=== PATIENT | male | born 1990 | race Caucasian/White ===

== ENCOUNTER → 2019-09-12 | Outpatient (CLI) | payer BC ==
[~2019-09-12] MED LIST: BUPIVACAINE MPF 0.25% 10 ML VIAL. ONE; IOHEXOL 180 MG/ML 10 ML VIAL. ONE; methylPREDNISolone ACETATE 40 MG/ML VIAL. ONE; methylPREDNISolone ACETATE 80 MG/ML VIAL. ONE
--- NOTE | 2019-09-12 14:10 | PAIN ---
DATE OF SERVICE: 09/12/2019 INITIAL CONSULTATION FOR PAIN CLINIC CHIEF COMPLAINT: Low back pain. HISTORY OF PRESENT ILLNESS: This is a 29-year-old male who presents with history of pain in the low back since about 07/03/2019, not a result of any specific injury or action he is aware of, but came on suddenly when he was at work. 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 Reports that it was not a work-related injury, but the pain began when he was at work with walking and climbing stairs. The patient reports it has been getting much worse since that time. He has had physical therapy for 6 weeks, which did not decrease the pain and feels that actually made it worse. He has not had any other therapies, chiropractic treatments, or other injections or procedures or treatments. The patient reports that the pain is awaking him multiple times at night from sleep, does not affect his bowel or bladder control, but does affect his ability to walk significantly. He is favoring his right lower extremity as it hurts worse on the right side in the low back and hip with some pain in the lateral calf as well on the right side, but only rarely. The patient reports the pain is constant, sharp in the back, stabbing with numbness sensation as well. The patient rates his disability rating 0-10, 10 being the worst, is a 7 with family home responsibilities and social activity, 8 with recreation and sexual behavior, 9 with occupation, 6 with self-care and 4 with life support activities. The patient did have an MRI scan of the lumbar spine showing at the L4-L5 a [id number] disk height loss with disk dehydration, associated broad-based posterior disk protrusion with no more than mild spinal canal stenosis, this was 07/08/2019. The patient has seen a neurosurgeon who is recommending conservative measures as well. The patient reports no loss of motor function, but significant fatigability to right lower extremity with walking and standing. PAST MEDICAL HISTORY: Significant for irritable bowel syndrome, insomnia, arthritis, depression. PREVIOUS SURGERIES: Include knee scopes, 3 on the left, 1 on the right; previous appendectomy. CURRENT MEDICATIONS: Include only [id number] ibuprofen and Tylenol. ALLERGIES: THE PATIENT IS ALLERGIC TO HYDROCODONE. FAMILY HISTORY: Significant for arthritis. SOCIAL HISTORY: The patient drinks about 3 drinks alcohol daily. Does not smoke, but chewing tobacco for about the last 8 years. He does not use any illegal, illicit, or recreational drugs. He is single, lives locally in [place], [place]. Has one child who is 1-year-old, who lives with him as well and his significant other. 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 REVIEW OF SYSTEMS: The patient's review of systems is positive for those items mentioned in history of present illness. All systems reviewed and otherwise negative. It is complete, full, and well documented on the patient's chart. PHYSICAL EXAMINATION: VITAL SIGNS: The patient's blood pressure is 126/92, pulse 90, respirations 16, temperature 98.0 degrees Fahrenheit. Height is 5 feet 1 inch and weight is 146 pounds. GENERAL: The patient is awake, alert, oriented, appropriate, very pleasant demeanor. HEENT: Shows normocephalic, atraumatic. Extraocular movements are intact and symmetrical. Oral cavity: Mucous membranes moist and pink. Dentition is intact. NECK: Shows anterior throat supple without palpable lymphadenopathy noted. Swallow reflex symmetrical. CHEST: Shows normal on inspection. Breath sounds are clear to auscultation bilaterally. HEART: Shows S1, S2 clear. No murmurs auscultated. ABDOMEN: Soft, nontender, nondistended. No palpable organomegaly is noted. There is no rebound or guarding demonstrated. BACK: Shows spine grossly in the midline. Normal-appearing cervical lordotic curvature, thoracic kyphotic curvature, and lumbar lordotic curvature. Lumbar paraspinous muscle shows symmetrical on inspection, on palpation shows some moderate tenderness diffusely, but only diffusely without significant radiation. The patient has good rotational motion of lumbar spine with significant tenderness with rotation to the right especially, but also with the left. Also, extension exacerbates the pain significantly to a severe level across the low back and into the posterior gluteus on the right. The patient reports it is mildly decreased with forward flexion, which he performs at 45 degrees, but it is not completely relieved. EXTREMITIES: The patient's lower extremities show deep tendon reflexes at 2+ in the patellar, 1+ tendo-calcaneus tendons are equal. Motor exam is strong with 5/5 dorsiflexion, extension, quadriceps, and hamstring flexion symmetrical. Peripheral pulses are 1+ posterior tibia. No peripheral edema is noted bilaterally. Straight leg raise noted to be negative for reproduction of radicular symptoms bilaterally, but it causes some pain in the low back on the right side with right leg raise at about 45 degrees. Left side is negative. Gaenslen's and Adonis's maneuvers are negative bilaterally as well. The patient is able to stand, stand on his toes, walks with favoring gait, does appear to favor the right lower extremity fairly significantly, but does not using any assistive devices such as canes or walkers to ambulate. SKIN: Shows warm and dry. Normal turgor. No edema. No sores, rashes, or bruising. IMPRESSION: 1. This is a 29-year-old male with approximate 2-month history of increasing pain in the low back into the right lower extremity to some extent, but consistent with facet pain syndrome. 2. MRI scan of lumbar spine as noted. 3. Arthritis. 4. Irritable bowel syndrome. PLAN: Options were discussed with the patient including conservative medical managements, physical therapies, and interventional techniques and he would like to pursue interventional techniques. We discussed bilateral L4-L5 and L5-S1 facet joint injections using description as well as anatomical models to describe the procedure. Risks were discussed including but not limited to bleeding, infection, possibility of epidural hematoma, subsequent neurological compromise, dural puncture, headaches, spinal cord and/or nerve damage, side effects of steroid medication, local anesthetic spread and numbness as well as poor results regarding pain control. The patient understands and wished to proceed. The patient will return to clinic in approximately 2 weeks for followup. He was counseled on return appointment, activity level, and side effects to be aware of. DIAGNOSIS: Lumbar and lumbosacral spondylosis. PROCEDURE: Bilateral L4-L5 and L5-S1 facet joint injections using C-arm fluoroscopic guidance under sterile prep and drape using local anesthetic. MEDICATION INJECTED: A total of 120 mg Depo-Medrol plus 4 mL of 0.25% bupivacaine, 2 mL of contrast. CONDITION AT DISCHARGE: Stable. The patient tolerated the procedure well, had no complications. NATALIE ALBERTO MD DR: TRUPTI/hieu JOB#: [id number] / [id number]
== END ==
LOC: PNCL 12:07
PROVIDERS: ATTEND Anesthesiology
DX: M47.817 Spondylosis without myelopathy or radiculopathy, lumbosacral region (principal); F32.9 Major depressive disorder, single episode, unspecified; Z87.39 Personal history of other diseases of the musculoskeletal system and connective tissue; K58.9 Irritable bowel syndrome, unspecified; Z98.890 Other specified postprocedural states; Z88.5 Allergy status to narcotic agent; Z72.89 Other problems related to lifestyle; Z72.0 Tobacco use
CPT/HCPCS: 64493; 64494; 64495; J1030; J1040; J3490; Q9965

== ENCOUNTER → 2019-09-26 | Outpatient (CLI) | payer BC ==
[~2019-09-26] MED LIST changes: -BUPIVACAINE MPF 0.25% 10 ML VIAL. ONE; +[UNRECOGNIZED DRUG - REMARK]
--- NOTE | 2019-09-26 13:01 | PAIN ---
DATE OF SERVICE: 09/26/2019 PROGRESS NOTE FOR PAIN CLINIC DIAGNOSES: Lumbar radiculopathy with lumbar degenerative disk disease and lumbar spondylosis. HISTORY OF PRESENT ILLNESS: The patient is a 29-year-old male who returns for followup status post initial evaluation and bilateral facet joint injections at L4-L5 and L5-S1. The patient reports only about 50% improvement for about 2 days, the pain returned about as bad as it was. The patient reports now it is radiating into his right leg with some pain in the right ankle that is consistent with aching in that area as well as his low back, especially with walking and standing. The patient reports it is an 8 on a scale of 10 at its worse over the past week, 6 on average and 4 at its least and is a 6 today. The patient reports it is aching and dull, sometimes it is shooting into the right lateral ankle. The patient reports it is becoming more constant with activity, better with sitting or lying down, generally does not awaken him from sleep at night. The patient reports no new motor or sensory deficits, no new bowel or bladder incontinence or other complaints. PHYSICAL EXAMINATION: VITAL SIGNS: The patient's blood pressure 120/88, pulse 101, respirations 16, temperature 98.2 degrees Fahrenheit, height is 5 feet 1 inch, weight is 147 pounds. GENERAL: The patient is awake, alert, oriented, appropriate, very pleasant demeanor. HEENT: Exam shows normocephalic, atraumatic. Extraocular movements are intact and symmetrical. Oral cavity shows mucous membranes moist and pink. Dentition is intact. NECK: Shows anterior throat supple without palpable lymphadenopathy noted. Swallow reflex symmetrical. CHEST: Shows normal on inspection. Breath sounds are clear bilaterally. HEART: Shows S1, S2 clear. No murmurs auscultated. ABDOMEN: Soft, nontender, nondistended. No palpable organomegaly is noted. No rebound or guarding demonstrated. BACK: Shows spine grossly in the midline. Normal appearing thoracic kyphosis and lumbar lordotic curvature. Lumbar paraspinous muscle shows symmetrical on inspection and firm musculature throughout the upper, middle and lower distribution of paraspinous muscles, but only diffusely tender, more on the right than the left, but without asymmetry, without trigger points, without radiation. The patient has good rotational motion of lumbar spine, both laterally with some moderate tenderness with extension, but better than on previous exam and not with forward flexion at 45 degrees. EXTREMITIES: The patient's lower extremities show deep tendon reflexes at 2+ in the patellar, 1+ tendo-calcaneus tendons. Motor exam is strong with 5/5 dorsiflexion, extension, quadriceps and hamstring flexion and symmetrical. Peripheral pulses are 1+. No peripheral edema bilaterally. Options were discussed with the patient. The patient's old chart was reviewed as his current medication regimen and review of systems. We will plan on a lumbar epidural steroid injection today with fluoroscopic guidance. Risks were then discussed including, but not limited to bleeding, infection, possibility of epidural hematoma and subsequent neurological compromise, dural punctures, headaches, spinal cord and/or nerve damage, side effects of steroid medication and poor results regarding pain control. The patient understands and wished to proceed. The patient will return to clinic in approximately 2 weeks for followup. He was counseled on return appointment, activity level and side effects to be aware of. DIAGNOSES: Lumbar radiculopathy with lumbar degenerative disk disease and lumbar spondylosis. PROCEDURE: Lumbar epidural steroid injection, translaminar approach at the L4-L5 level using C-arm fluoroscopic guidance under sterile prep and drape using local anesthetic. MEDICATION INJECTED: A total of 120 mg Depo-Medrol plus 10 mL of preservative-free normal saline and 2 mL of contrast. CONDITION AT DISCHARGE: Stable. The patient tolerated procedure well, had no complications. NATALIE ALBERTO MD DR: TRUPTI/hieu JOB#: [id number] / [id number]
== END ==
LOC: PNCL 10:55
PROVIDERS: ATTEND Anesthesiology
DX: M51.16 Intervertebral disc disorders with radiculopathy, lumbar region (principal); M47.816 Spondylosis without myelopathy or radiculopathy, lumbar region
CPT/HCPCS: 62323; J1030; J1040; Q9965

== ENCOUNTER → 2019-10-10 | Outpatient (CLI) | payer BC ==
--- NOTE | 2019-10-10 11:21 | PAIN ---
DATE OF SERVICE: 10/10/2019 PROGRESS NOTE FOR PAIN CLINIC DIAGNOSES: Lumbar radiculopathy with lumbar degenerative disk disease and lumbar spondylosis. HISTORY OF PRESENT ILLNESS: The patient is a 29-year-old male who returns for followup status post lumbar epidural steroid injection x 1. The patient reports about 50% improvement in his leg. He is doing much better now after the injection as best though has some pain in the right side of the low back primarily, but across the low back the patient reports it is much improved. He is increasing his activity with greater ability to walk and activities at work as well as at home, traveling with greater ease and comfort. The patient reports it is awakening him from sleep still but only about once every 6 hours. The patient reports no new motor or sensory deficits, describes the pain as aching and dull in the low back with the radiating pain much reduced in the right leg by about 50%. The patient reports his pain is a 7 on a scale of 10 at its worst over the past week, 6 on average, 5 at its least and is a 5 today. The patient reports no new motor or sensory deficits, no bowel or bladder incontinence or other complaints. PHYSICAL EXAMINATION: VITAL SIGNS: The patient's blood pressure 126/98, pulse 90, respirations 16, temperature 98.3 degrees Fahrenheit, height is 5 feet 1 inch, weight is 151 pounds. GENERAL: The patient is awake, alert, oriented, appropriate, very pleasant demeanor. HEENT: Shows normocephalic, atraumatic. Extraocular movements are intact and symmetrical. Oral cavity: Mucous membranes moist and pink. Dentition is intact. NECK: Shows anterior throat supple without palpable lymphadenopathy noted. Swallow reflex symmetrical. CHEST: Shows normal on inspection. Breath sounds are clear bilaterally. HEART: Shows S1, S2 clear. No murmurs auscultated. ABDOMEN: Soft, nontender, nondistended. No palpable organomegaly is noted. No rebound or guarding demonstrated. BACK: Shows spine grossly in the midline. Lumbar paraspinous muscle shows symmetrical on inspection, with palpation shows some mild tenderness, but only diffusely throughout the middle and lower distribution of paraspinous muscles, but without radiation, without trigger points or asymmetry. EXTREMITIES: The patient's lower extremities show deep tendon reflexes at 2+ patellar, 1+ tendo-calcaneus tendons. Motor exam is strong with 5/5 dorsiflexion, extension, quadriceps and hamstring flexion and symmetrical. Peripheral pulses are 1+ posterior tibia. No peripheral edema is noted. Options were discussed with the patient. The patient's old chart was reviewed as his current medication regimen updated. Current review of systems updated today as well. We will proceed with a second in a series of lumbar epidural steroid injections with fluoroscopic guidance. Risks were again discussed including, but not limited to bleeding, infection, possibility of epidural hematoma, subsequent neurological compromise, dural puncture, headaches, spinal cord and/or nerve damage, side effects of steroid medication and poor results regarding pain control. The patient understands and wished to proceed. The patient will return to clinic in approximately 2 weeks for followup. He was counseled on return appointment, activity level and side effects to be aware of. DIAGNOSES: Lumbar radiculopathy with lumbar degenerative disk disease and lumbar spondylosis. PROCEDURE: Lumbar epidural steroid injection, translaminar approach at L4-L5 level using C-arm fluoroscopic guidance under sterile prep and drape using local anesthetic. MEDICATION INJECTED: A total of 120 mg Depo-Medrol plus 10 mL preservative-free normal saline and 2 mL of contrast. CONDITION AT DISCHARGE: Stable. The patient tolerated procedure well, had no complications. NATALIE ALBERTO MD DR: TRUPTI/hieu JOB#: [id number] / [id number]
== END ==
LOC: PNCL 10:10
PROVIDERS: ATTEND Anesthesiology
DX: M51.16 Intervertebral disc disorders with radiculopathy, lumbar region (principal); M47.26 Other spondylosis with radiculopathy, lumbar region; M54.5 Low back pain; Z79.899 Other long term (current) drug therapy; Z98.890 Other specified postprocedural states
CPT/HCPCS: 62323; J1030; J1040; Q9965

== ENCOUNTER → 2019-10-24 | Outpatient (CLI) | payer BC ==
[~2019-10-24] MED LIST changes: -IOHEXOL 180 MG/ML 10 ML VIAL. ONE; -methylPREDNISolone ACETATE 40 MG/ML VIAL. ONE; -methylPREDNISolone ACETATE 80 MG/ML VIAL. ONE
--- NOTE | 2019-10-24 11:14 | PAIN ---
DATE OF SERVICE: 10/24/2019 PROGRESS NOTE FOR PAIN CLINIC DIAGNOSES: Lumbar radiculopathy with lumbar degenerative disk disease and lumbar spondylosis. HISTORY OF PRESENT ILLNESS: The patient is a 29-year-old male who returns for followup status post lumbar epidural steroid injection x 2 and facet injections x 1. The patient reports he is doing fairly well, about 50% improvement and overall the patient reports pain is better, but still painful in the low back, especially at night when he is lying flat on his back, he notices some tingling in his feet, but if he is up on his feet during the day, it is fairly tolerable. The patient reports his pain does flare up with the extended standing or walking, can be as high as an 8 on a scale of 10 and worse over the last week, its average is a 5, and its lowest is a 4 and is a 5 today. The patient reports it is aching and dull across the back, tingling in the legs, becoming more constant with activity, better with sitting or resting. The patient reports it generally does not awaken him from sleep, however. The patient reports no new motor or sensory deficits, no new bowel or bladder incontinence. PHYSICAL EXAMINATION: VITAL SIGNS: The patient's blood pressure 132/94, pulse 73, respirations are 20, temperature 98.1 degrees Fahrenheit, height is 5 feet 1 inch, weight is 150 pounds. GENERAL: The patient is awake, alert, oriented, appropriate, very pleasant demeanor. HEENT: Shows normocephalic, atraumatic. Extraocular movements are intact and symmetrical. Oral cavity shows mucous membranes moist and pink. Dentition is intact. NECK: Shows anterior throat supple without palpable lymphadenopathy noted. Swallow reflex symmetrical. CHEST: Shows normal on inspection. Breath sounds are clear bilaterally. No rales, rhonchi or wheezes auscultated. HEART: Shows S1 and S2 clear. No murmurs auscultated. ABDOMEN: Soft, nontender, nondistended. BACK: Shows spine grossly in the midline. Normal appearing thoracic kyphosis and minor flattening of lumbar lordotic curvature. Lumbar paraspinous muscle shows symmetrical on inspection, with palpation shows some moderate tenderness diffusely bilaterally, but only diffusely without significant radiation throughout the upper, middle and lower distribution of paraspinous muscles. The patient has good rotational motion of lumbar spine, however, both laterally as well as extension and flexion without significant pain reported. EXTREMITIES: Lower extremities show deep tendon reflexes 2+ in the patellar, 1+ tendo-calcaneus tendons. Motor exam is strong with 5/5 dorsiflexion, extension, quadriceps and hamstring flexion symmetrical. Peripheral pulses are 1+ posterior tibia. No peripheral edema is noted bilaterally. Options were discussed with the patient. The patient's old chart was reviewed as his current medication regimen updated. Current review of systems updated today as well and we will hold on any further injections at this time as the patient is doing fair amount better and would like to wait for further injections. We will encourage the patient to maintain stretching and strengthening exercises, also back brace wearing when he is on his feet at work if possible. The patient will return to clinic at this time on as needed basis. NATALIE ALBERTO MD DR: TRUPTI/hieu JOB#: [id number] / [id number]
== END | disposition home or self-care (01) ==
LOC: PNCL 09:38
PROVIDERS: ATTEND Anesthesiology
DX: M51.16 Intervertebral disc disorders with radiculopathy, lumbar region (principal); M47.26 Other spondylosis with radiculopathy, lumbar region; Z98.890 Other specified postprocedural states
CPT/HCPCS: G0463